=== PATIENT | female | born 1955 ===

== ENCOUNTER 2022-08-14 10:57 | Outpatient (CLI) | payer OTHER ==
[2022-08-16] MEDS ORDERED: SIMVASTA PO (07:51)
[2022-08-16] MEDS ORDERED: [UNRECOGNIZED DRUG - OTHER] (07:51)
[2022-08-16] MEDS ORDERED: TOPROL XL25 M1 PO (07:51)
== END 2022-08-14 10:59 | disposition home or self-care (01) ==
LOC: LAB 10:57
PROVIDERS: ATTEND Surgery
DX: I10 Essential (primary) hypertension (principal); Z01.810 Encounter for preprocedural cardiovascular examination; D37.5 Neoplasm of uncertain behavior of rectum; K62.89 Other specified diseases of anus and rectum; Z86.010 Personal history of colon polyps

== ENCOUNTER 2022-08-17 06:25 | Day surgery (SDC) | payer OTHER ==
[~2022-08-17 06:25] MED LIST: SIMVASTA PO; TOPROL XL25 M1 PO; [UNRECOGNIZED DRUG - OTHER]
== END 2022-08-17 23:55 | disposition home or self-care (01) ==
LOC: CIR.AMB 06:25
PROVIDERS: ATTEND Surgery
DX: C7A.026 Malignant carcinoid tumor of the rectum (principal); Z20.822 Contact with and (suspected) exposure to COVID-19; Z88.2 Allergy status to sulfonamides; Z88.0 Allergy status to penicillin; Z88.6 Allergy status to analgesic agent; Z91.041 Radiographic dye allergy status; I10 Essential (primary) hypertension; E78.5 Hyperlipidemia, unspecified